=== PATIENT | female | born 1965 | race Caucasian/White ===

== ENCOUNTER 2017-05-30 11:58 | Day surgery (SDC) | payer OTHER ==
[~2017-05-30] VITALS: Ht 170.2 cm; Wt 73.7 kg
[2017-05-30] MEDS ORDERED: [UNRECOGNIZED DRUG - CODE] PO (12:33)
[2017-05-30] MEDS ORDERED: ZOLP5 PO (12:33)
== END 2017-05-30 14:56 | disposition home or self-care (01) ==
LOC: ORSCSDS 11:58
PROVIDERS: Orthopaedic Surgery
PROC: 01N50ZZ Release Median Nerve, Open Approach (ICD-10-PCS; principal; 2017-05-30 15:00)
DX: G56.03 Carpal tunnel syndrome, bilateral upper limbs (principal)
CPT/HCPCS: J2250; J3010; J7120